=== PATIENT | female | born 1990 | race Caucasian/White ===

== ENCOUNTER 2017-01-26 10:48 | Emergency (ER) | payer OTHER ==
[~2017-01-26] VITALS: Ht 157.5 cm; Wt 50.9 kg
[2017-01-26 11:36] LABS: BASOPHIL % 0.6 % (0-2); PLATELET COUNT 282 x10^3mcL (130-400); RED CELL DISTRIBUTION WIDTH 12.9 % (11.5-14.5)
[2017-01-26 11:58] LABS: UA SPECIFIC GRAVITY 1.025 (1.005-1.035); microscopic required? YES; urine erythrocyte NEGATIVE (NEGATIVE)
[2017-01-26 11:59] LABS: CALCIUM 9.6 mg/dL (8.5-10.1); CARBON DIOXIDE 26.6 mmol/L (21-32); CHLORIDE SERUM 101 mmol/L (98-107); CREATININE SERUM 0.8 mg/dL (0.6-1.0); GFR1 > 60 mL/min; GLUCOSE SERUM 97 mg/dL (74-106); POTASSIUM SERUM 3.6 mmol/L (3.5-5.1); SODIUM SERUM 138 mmol/L (136-145)
[2017-01-26 12:03] LABS: ALBUMIN 4.4 g/dL (3.4-5.0); ALKALINE PHOSPHATASE 75 U/L (46-116); ALT/SGPT 20 U/L (14-59); AMYLASE 67 U/L (25-115); AST/SGOT 17 U/L (15-37); BILIRUBIN TOTAL 0.9 mg/dL (0.20-1.00); LIPASE 273 IU/L (73-393); TOTAL PROTEIN, SERUM 8.1 g/dL (6.4-8.2)
[2017-01-26 14:45] VITALS: BP 110/63
== END 2017-01-26 14:45 | disposition home or self-care (01) ==
LOC: ED 10:48
PROVIDERS: Emergency Medicine
DX: O21.0 Mild hyperemesis gravidarum (principal); O26.891 Other specified pregnancy related conditions, first trimester; R10.9 Unspecified abdominal pain; Z3A.01 Less than 8 weeks gestation of pregnancy
CPT/HCPCS: J3411; J3490; J7030

== ENCOUNTER 2017-02-19 19:25 | Emergency (ER) | payer OTHER ==
[2017-02-19 21:13] LABS: CALCIUM 9.2 mg/dL (8.5-10.1); CARBON DIOXIDE 23.4 mmol/L (21-32); CHLORIDE SERUM 97 mmol/L (98-107); CREATININE SERUM 0.7 mg/dL (0.6-1.0); GFR1 > 60 mL/min; GLUCOSE SERUM 89 mg/dL (74-106); POTASSIUM SERUM 3.7 mmol/L (3.5-5.1); SODIUM SERUM 131 mmol/L (136-145)
[2017-02-19 22:15] VITALS: BP 104/68
== END 2017-02-19 22:15 | disposition home or self-care (01) ==
LOC: ED 19:25
PROVIDERS: Emergency Medicine
DX: O21.0 Mild hyperemesis gravidarum (principal); Z3A.09 9 weeks gestation of pregnancy
CPT/HCPCS: J2405; J7030

== ENCOUNTER 2017-05-02 16:23 | Emergency (ER) | payer OTHER ==
[2017-05-02 16:55] VITALS: BP 92/65
[2017-05-02 19:25] LABS: UA SPECIFIC GRAVITY <=1.005 (1.005-1.035); microscopic required? YES; urine erythrocyte 2+ (NEGATIVE)
== END 2017-05-02 19:31 | disposition home or self-care (01) ==
LOC: ED 16:23
PROVIDERS: Emergency Medicine
DX: O23.42 Unspecified infection of urinary tract in pregnancy, second trimester (principal); O9A.212 Injury, poisoning and certain other consequences of external causes complicating pregnancy, second trimester; S70.01XA Contusion of right hip, initial encounter; Z3A.00 Weeks of gestation of pregnancy not specified; W01.10XA Fall on same level from slipping, tripping and stumbling with subsequent striking against unspecified object, initial encounter; Y93.89 Activity, other specified; Y92.89 Other specified places as the place of occurrence of the external cause; Y99.8 Other external cause status

== ENCOUNTER 2018-04-16 09:16 | Emergency (ER) | payer OTHER ==
[~2018-04-16] VITALS: Ht 157.5 cm; Wt 53.1 kg
[2018-04-16 09:19] VITALS: BP 150/87; Ht 157.5 cm; Wt 53.1 kg
== END 2018-04-16 10:16 | disposition home or self-care (01) ==
LOC: ED 09:16
DX: J02.9 Acute pharyngitis, unspecified (principal)